=== PATIENT | female | born 1980 | race Two or more races ===

== ENCOUNTER 2023-03-25 23:25 | Emergency (ER) | payer MEDICAID, OTHER ==
[~2023-03-25] VITALS: Ht 160 cm; Wt 72.5 kg
[2023-03-26 00:56] LABS: Basophils # (auto) 0 10 ^3/uL (0-0.2); Basophils % (auto) 0.5 % (0.0-2.0); Eosinophils # (auto) 0.2 10 ^3/uL (0-0.8); Eosinophils % (auto) 2.9 % (0.0-7.0); Hematocrit 38.8 % (36.0-46.0); Lymphocytes # (auto) 1.5 10 ^3/uL (0.4-5.4); Lymphocytes % (auto) 19.6 % (10.0-50.0); Mean Corpuscular Hemoglobin 32.5 pg (28.0-32.0); Mean Corpuscular Hgb Conc. 33.5 g/dL (32.0-36.0); Monocytes # (auto) 0.7 10 ^3/uL (0-1.3); Monocytes % (auto) 9.9 % (0.0-12.0); Neutrophils % (auto) 67.1 % (37.0-80.0); Nucleated Red Blood Cells % 0.2 %; Red Cell Distribution Width 14.4 % (11.8-14.3); White Blood Cell 7.4 10^3/uL (4.4-10.8)
[2023-03-26 01:03] LABS: Salicylate 2.4 mg/dL (2.8-20.0)
[2023-03-26 01:04] LABS: Albumin 3.6 g/dL (3.4-5.0); BUN/Creatinine Ratio 13.9 (10.0-20.0); Calcium 8.2 mg/dL (8.5-10.1); Potassium 3.3 mmol/L (3.5-5.1)
[2023-03-26 01:07] LABS: Bilirubin, Total 0.3 mg/dL (0.2-1.0); Total Protein 6.7 g/dL (6.4-8.2)
[2023-03-26 01:08] LABS: Acetaminophen < 2.0 ug/mL (10-30)
[2023-03-26 07:01] LABS: Urine Bacteria FEW /hpf (None Seen); Urine Blood Negative /uL (Negative); Urine Hyaline Cast FEW /lpf (0 - 2); Urine Mucus FEW (None Seen); Urine Specific Gravity 1.022 (1.001-1.035); Urine WBC 27 /hpf (0 - 5)
[2023-03-26 07:09] LABS: Alcohol, Urine < 3.0 mg/dL (0-10); Amphetamine Screen, Urine POSITIVE (NEGATIVE); Barbiturate Scree,Urine NEGATIVE (NEGATIVE); Benzodiazephine Screen, Urine NEGATIVE (NEGATIVE)
[2023-03-26 07:17] LABS: Cannabinoid Screen, Urine POSITIVE (NEGATIVE); Cocaine Screen, Urine POSITIVE (NEGATIVE); Opiate Scree,Urine NEGATIVE (NEGATIVE); Phencyclidine Screen, Urine NEGATIVE (NEGATIVE)
[2023-03-26] MEDS ORDERED: POTASSIUM EFFERVESENT TAB 25 MEQ PO ONE (11:00)
[2023-03-26] MEDS ORDERED: LORazepam 2MG/ML-1ML VIAL IV ONE (16:00)
[2023-03-26] MEDS ORDERED: LORazepam 2MG/ML-1ML VIAL IM ONE (16:00)
[2023-03-26] MEDS ORDERED: LORazepam 0.5 MG TAB PO ONE (22:30)
[2023-03-27] MEDS: LORazepam 0.5 MG TAB PO PRN ×2 (02:32→10:17)
[2023-03-27] MEDS ORDERED: QUEtiapine FUMARATE 100 MG TAB PO SCH (10:00)
[2023-03-27 11:50] VITALS: BP 147/63
[2023-03-27] MEDS ORDERED: MIRTAZAPINE 30 MG TAB PO SCH (22:00)
== END 2023-03-27 13:31 | disposition short-term general hospital (02) ==
LOC: EDBD 23:25 → ER 23:25
DX: R45.851 Suicidal ideations (principal); F41.9 Anxiety disorder, unspecified; F31.9 Bipolar disorder, unspecified; F20.9 Schizophrenia, unspecified; F17.210 Nicotine dependence, cigarettes, uncomplicated; F12.10 Cannabis abuse, uncomplicated
CPT/HCPCS: 36415; 80053; 80307; 80320; 80329; 81001; 81025; 85025; 96372; 99285; J2060; 71045; 73630